=== PATIENT | female | born 1965 | race Caucasian/White ===

== ENCOUNTER → 2017-10-23 | Outpatient (CLI) | payer OTHER ==
--- NOTE | 2017-10-23 18:49 | RAD ---
Left lower extremity venous duplex Doppler ultrasound HISTORY: Left leg pain and swelling. TECHNIQUE: Grayscale and duplex Doppler sonography were utilized. FINDINGS: No evidence of deep venous thrombosis with compressibility, patent color Doppler blood flow and augmentation of blood flow the left common femoral vein, profunda femoral vein, superficial femoral vein and popliteal vein. No thrombosis with patent color Doppler blood flow of the deep left calf veins documented. IMPRESSION: Negative left leg for deep venous thrombosis. Electronically signed by: Pasquale Crandall MD (10/23/2017 6:46 PM) [facility]
== END | disposition home or self-care (01) ==
LOC: US 17:45
PROVIDERS: ATTEND Family Medicine
DX: M79.652 Pain in left thigh (principal); R22.42 Localized swelling, mass and lump, left lower limb
CPT/HCPCS: 93971